=== PATIENT | female | born 1930 | race Caucasian/White ===

== ENCOUNTER 2017-04-26 19:42 | Emergency (ER) | payer MEDICARE ==
[~2017-04-26] VITALS: Ht 162.6 cm; Wt 56.7 kg
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
[2017-04-26] MEDS ORDERED: LIDOCAINE 2%-EPI 1:100,000 20 ML VIAL TP ONE (20:45)
[2017-04-26] MEDS ORDERED: TDAP DIPH,PERTUSS,TET VAC/PF 0.5 ML DISP.SYRIN IM ONE ×2 (20:45→21:12)
--- NOTE | 2017-04-26 21:22 | NUR ---
Laceration repair completed to bilat elbows. Drsg applied, dry and intact. Pos CMS s/p application. Pt stable for discharge per MD. Pt and family given ACI. Both verbalized understanding of dc instructions. Pt wheeled out of er via w/c with ride home.
[2017-04-26 21:24] VITALS: BP 124/54
== END 2017-04-26 21:24 | disposition home or self-care (01) ==
LOC: ER 19:42
DX: S51.021A Laceration with foreign body of right elbow, initial encounter (principal); Z95.0 Presence of cardiac pacemaker; W20.8XXA Other cause of strike by thrown, projected or falling object, initial encounter; Y93.89 Activity, other specified; Y92.009 Unspecified place in unspecified non-institutional (private) residence as the place of occurrence of the external cause; Y99.8 Other external cause status
CPT/HCPCS: 90715; A4217; A4663

== ENCOUNTER 2021-08-12 07:41 | Inpatient (IN) | payer MEDICARE ==
[~2021-08-12] VITALS: Ht 170.2 cm; Wt 49.0 kg
--- NOTE | 2021-08-12 08:02 | NUR ---
PT IS IN ROOM #1A. DR CASTRO EVALUATED THE PT.
--- NOTE | 2021-08-12 08:11 | NUR ---
PT IS UNABLE TO PROVIDE INFORMATION ABOUT HER HOME MEDICATION. PT's SISTER IS GOING TO BRING MEDICATION LIST LATER.
[2021-08-12 09:05] LABS: MEAN CORPUSCULAR HEMOGLOBIN 31.2 uug (24.7-32.8); MEAN CORPUSCULAR VOLUME 92.7 fL (75.5-95.3); PLATELET COUNT (AUTO) 160 K/uL (179-408)
[2021-08-12 09:13] LABS: CARBON DIOXIDE 32 mmol/L (21-32); CHLORIDE 98 mmol/L (98-107); CREATININE 0.9 mg/dL (0.6-1.3); GLUCOSE 115 mg/dL (74-106); POTASSIUM 3.1 mmol/L (3.5-5.1); UREA NITROGEN, BLOOD 24 mg/dL (7-18)
[2021-08-12 09:15] LABS: ETHANOL < 3 MG/DL (0-0)
[2021-08-12 09:19] LABS: ALANINE AMINOTRANSFERASE 10 U/L (14-59); ALKALINE PHOSPHATASE 76 U/L (50-136); ASPARTATE AMINOTRANSFERASE 16 U/L (15-37); BILIRUBIN,DIRECT 0.2 mg/dL (0.0-0.2); BILIRUBIN,TOTAL 0.5 mg/dL (0.2-1.0); TOTAL PROTEIN, SERUM 6.6 g/dL (6.4-8.2)
[2021-08-12 09:20] LABS: ACETAMINOPHEN < 2.0 ug/mL (10-30)
[2021-08-12] MEDS ORDERED: IV NS 1000 ML 1,000 ML IV ONE ×2 (09:30)
[2021-08-12 09:46] LABS: THYROID STIMULATING HORMONE 2.712 mIU/mL (0.358-3.740)
[2021-08-12] MEDS ORDERED: CEFTRIAXONE 1 G in IV DEXTROSE 5% 50 ML IV ONE (13:00)
[2021-08-12] MEDS ORDERED: AZITHROMYCIN IV 500 MG in IV DEXTROSE 5% 250 ML IV ONE (13:00)
[2021-08-12] MEDS ORDERED: AZITHROMYCIN 500MG/ D5W 250ML IVPB **ER PYXIS ONLY IV ONE (13:08)
[2021-08-12] MEDS ORDERED: CEFTRIAXONE /D5W 50ML IVPB **ER PYXIS IV ONE (13:08)
--- NOTE | 2021-08-12 14:18 | NUR ---
REPORT WAS GIVEN TO KASHIF M/S. PT WAS TRANSFERED TO M/S ROOM #316.
--- NOTE | 2021-08-12 14:40 | NUR ---
admitted from home via er an 89 yo female with admitting dx of PNEUMONIA. Awake alert snd oriented x3, able to participate with admission assessment. routine admission assessment initiated, will notify DR Chao of admission
[2021-08-12 16:00] VITALS: BP 72/49
--- NOTE | 2021-08-12 16:06 | NUR ---
DR LOPEZ NOTIFIED OF ADMISSION AND LOW BP 79/32 WITH ORDER TO GIVE 500 CC NS
[2021-08-12] MEDS ORDERED: IV NORMAL SALINE 500 ML IV ONE (16:15)
[2021-08-12] MEDS ORDERED: SPIR25TA PO (16:36)
[2021-08-12] MEDS ORDERED: LOSA50TA39 PO (16:36)
[2021-08-12] MEDS ORDERED: CARV6.252 PO (16:36)
[2021-08-12] MEDS ORDERED: ATOR20TA PO (16:36)
[2021-08-12] MEDS ORDERED: RANO500T3 PO (16:36)
[2021-08-12] MEDS ORDERED: FURO40TA5 PO (16:36)
[2021-08-12] MEDS ORDERED: ASPI81TA31 PO (16:36)
[2021-08-12] MEDS ORDERED: ZOLPIDEM 5 MG TABLET PO PRN (17:45)
[2021-08-12] MEDS ORDERED: ACETAMINOPHEN 325 MG TABLET PO PRN (17:45)
[2021-08-12] MEDS ORDERED: ONDANSETRON 4 MG/2 ML VIAL IV PRN (17:45)
[2021-08-12 18:57] VITALS: BP 122/56
--- NOTE | 2021-08-12 19:15 | NUR ---
Received shift report, patient on RA with no signs of respiratory distress. Patient requested sleeping medication. Ambien 5mg given per patient's request.
[2021-08-12] MEDS ORDERED: PIPERACILLIN SODIUM/TAZOBACTAM 3.375 G in IV DEXTROSE 5% 50 ML IV ONE (20:00)
[2021-08-12 20:13] VITALS: BP 120/50
[2021-08-12] MEDS ORDERED: ATORVASTATIN 20 MG TABLET PO SCH (21:00)
[2021-08-12] MEDS: RANOLAZINE 500 MG TAB.ER.12H PO SCH (21:36)
[2021-08-13 00:05] VITALS: BP 125/60
[2021-08-13] MEDS ORDERED: ZOLPIDEM 5 MG TABLET PO PRN (01:30)
[2021-08-13] MEDS ORDERED: PIPERACILLIN SODIUM/TAZOBACTAM 3.375 G in IV DEXTROSE 5% 100 ML IV SCH (04:00)
[2021-08-13 04:25] VITALS: BP 125/60
--- NOTE | 2021-08-13 06:04 | NUR ---
Patient resting in bed, AO x 4, SR and PVC on tele monitor. Patient intermittently sleeping, no signs of respiratory discomfort. Patient tolerated medication and care throughout the shift. Call lights within reach, bed alarm on, and bed locked in lowest position. Will endorse to incoming shift.
[2021-08-13 07:30] LABS: HEMATOCRIT 28.1 % (31.2-41.9); MEAN CORPUSCULAR HEMOGLOBIN 31.9 uug (24.7-32.8); MEAN CORPUSCULAR VOLUME 92.5 fL (75.5-95.3); PLATELET COUNT (AUTO) 146 K/uL (179-408)
--- NOTE | 2021-08-13 07:30 | NUR ---
received patient laying in bed in no acute distress. patient is alert and oriented and able to make needs known. patient is hard of hearing. v/s wnl at this time. denies any pain or discomfort at this time. reminded to use call light for help. side rails up x2, will monitor.
[2021-08-13 08:09] LABS: BILIRUBIN,TOTAL 0.7 mg/dL (0.2-1.0); MAGNESIUM 2.2 mg/dL (1.8-2.4); PHOSPHOROUS 3.1 mg/dL (2.5-4.9)
[2021-08-13] MEDS ORDERED: POTASSIUM CHLORIDE 20 MEQ TAB.PRT.SR PO ONE (08:30)
[2021-08-13] MEDS ORDERED: FUROSEMIDE 20 MG/2 ML VIAL IV SCH (09:00)
[2021-08-13] MEDS ORDERED: PANTOPRAZOLE SODIUM 40 MG VIAL IV SCH (09:00)
[2021-08-13] MEDS: RANOLAZINE 500 MG TAB.ER.12H PO SCH (09:24)
[2021-08-13 11:00] VITALS: BP 124/59
--- NOTE | 2021-08-13 11:00 | NUR ---
Patients family member at bed side asking to talk to Dr. Chao r: possible gt/jtube placement. Dr. moody made aware, per Dr. bassem Bradshaw is aware and will be in unit later on to talk to patient and family. patient aware.
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
[2021-08-13] MEDS ORDERED: Z GUARD REMEDY PASTE 57 GM TUBE TOP PRN (11:15)
[2021-08-13] MEDS ORDERED: CEFTRIAXONE 1 G VIAL IM SCH (11:15)
[2021-08-13] MEDS ORDERED: ASPIRIN 81 MG TAB.CHEW PO SCH (11:45)
[2021-08-13] MEDS ORDERED: CARVEDILOL 6.25 MG TABLET PO SCH (11:45)
--- NOTE | 2021-08-13 12:30 | NUR ---
Dr. luevano notifed of patient wanting to leave AMA
--- NOTE | 2021-08-13 12:30 | NUR ---
Per patient "i dont want to wait anymore, i want to leave." explained that it is not recommended for patient to leave because they are not medically cleared. Patient stated " it doesnt matter i want to leave" explained that they would have to sign an AMA form . Per patient its ok ill sign i will do the J-tube outpatient and i will just follow up with my doctor. Again explained risks of leaving AMA. Patient again stated they just want to leave. AMA form signed by patient, family at bed side, stating we just want to go home.
[2021-08-13] MEDS ORDERED: CEFTRIAXONE 1 G in IV DEXTROSE 5% 50 ML IV SCH (13:00)
--- NOTE | 2021-08-13 13:00 | NUR ---
IV site removed, roller leveler operator removed, id band removed. patient assisted onto vehicle. patient with eduarda torresl at time that they left.
--- NOTE | 2021-08-13 13:33 | NUR ---
incident report completed: report #[id number]
[2021-08-13] MEDS ORDERED: DOXYCYCLINE HYCLATE IV 100 MG in IV DEXTROSE 5% 100 ML IV SCH (21:00)
[2021-08-14] MEDS ORDERED: FUROSEMIDE 20 MG TABLET PO SCH (09:00)
== END 2021-08-13 13:00 | disposition left against medical advice (07) | DRG 871 ==
LOC: ER 07:41 → MERGE 07:41 → MEDSURG3 13:39 → TELE3 15:47
PROVIDERS: ADMIT Internal Medicine; ATTEND Internal Medicine
DX: A41.9 Sepsis, unspecified organism (principal); J69.0 Pneumonitis due to inhalation of food and vomit; G92.8 Other toxic encephalopathy; I50.33 Acute on chronic diastolic (congestive) heart failure; D68.59 Other primary thrombophilia; J90 Pleural effusion, not elsewhere classified; Z68.1 Body mass index [BMI] 19.9 or less, adult; K92.2 Gastrointestinal hemorrhage, unspecified; D64.9 Anemia, unspecified; D69.6 Thrombocytopenia, unspecified; E86.0 Dehydration; E87.6 Hypokalemia; G89.4 Chronic pain syndrome; I25.5 Ischemic cardiomyopathy; Z86.73 Personal history of transient ischemic attack (TIA), and cerebral infarction without residual deficits; Z85.51 Personal history of malignant neoplasm of bladder; Z95.0 Presence of cardiac pacemaker; Z95.1 Presence of aortocoronary bypass graft; Z98.82 Breast implant status; Z85.028 Personal history of other malignant neoplasm of stomach; Z20.822 Contact with and (suspected) exposure to COVID-19; R62.7 Adult failure to thrive; R29.6 Repeated falls; I25.10 Atherosclerotic heart disease of native coronary artery without angina pectoris; R23.4 Changes in skin texture; R53.1 Weakness; S40.022A Contusion of left upper arm, initial encounter; W07.XXXA Fall from chair, initial encounter; Y93.9 Activity, unspecified; Y92.009 Unspecified place in unspecified non-institutional (private) residence as the place of occurrence of the external cause; F40.240 Claustrophobia; H91.90 Unspecified hearing loss, unspecified ear; F64.9 Gender identity disorder, unspecified; I11.0 Hypertensive heart disease with heart failure; R63.6 Underweight; Z79.82 Long term (current) use of aspirin; Z95.2 Presence of prosthetic heart valve; Z90.3 Acquired absence of stomach [part of]
CPT/HCPCS: 36415; 70030-TC; 70450; 71045; 82378; 83550; 83605; 83735; 84100; 84443; 85025; 87040; 93005; A4663; A6209; C9113; G0378; G0480; J0456; J0696; J1940; J2405; J2543; J3490; J7030; J7040; J7050; J7060